=== PATIENT | male | born 1975 | race African-American/Black ===

== ENCOUNTER → 2019-12-28 | Outpatient (CLI) | payer OTHER ==
[~2019-12-28] MED LIST: IOHEXOL 300 MG/ML 75 ML VIAL. IV ONE
--- NOTE | 2019-12-28 09:43 | RAD ---
CT chest without and with contrast Contrast: 75 mL Omnipaque 300 intravenous contrast. HISTORY: Shortness of breath. Weakness. FINDINGS: Noncontrast imaging demonstrates small calcifications at the wall of the aortic arch and at the AP window likely related to the ligamentum arteriosum a normal development of future. Postcontrast imaging demonstrates heart size normal. Aorta, esophagus and pulmonary vessels are unremarkable. There is borderline mediastinal adenopathy largest lymph nodes at the AP window measure 1.6 x 0.9 cm, and borderline hilar adenopathy largest lymph node at the left hilum measures 1.4 x 0.9 cm. There is borderline axillary adenopathy largest lymph node on the right measures 1.6 x 0.8 cm. Mild apical and upper lobe paraseptal pulmonary emphysema. Diffuse bronchial wall thickening more so at the left lung. Mild endobronchial plugging at the left upper lobe and lingula. Extensive centrilobular nodules measuring less than 6 mm at the left upper lobe, lingula and left lower lobe. No pleural effusions. No consolidation. Thoracic degenerative disc disease. IMPRESSION: 1. Diffuse left pulmonary centrilobular subsolid nodules and areas of endobronchial plugging of the upper lobe, lingula and lower lobe likely represents multilobar pneumonia. Given the unilateral nature of pulmonary nodularity, sarcoidosis or hypersensitivity pneumonitis are less likely. 2. Borderline enlarged mediastinal, hilar and axillary lymph nodes. 3. Diffuse bronchial wall thickening likely bronchitis. 4. Consider follow-up CT imaging in 3-6 months. Exposure: One or more of the following individualized dose reduction techniques were utilized for this examination: 1. Automated exposure control 2. Adjustment of the mA and/or kV according to patient size 3. Use of iterative reconstruction technique Electronically signed by: Nikhil Gaspar MD (12/28/2019 9:40 AM) [id number]
== END ==
LOC: CT 08:09 → EEVIPCON 08:30
PROVIDERS: ATTEND Preventive Medicine Occupational Medicine
DX: R91.8 Other nonspecific abnormal finding of lung field (principal); J92.9 Pleural plaque without asbestos
CPT/HCPCS: 71270; Q9967